=== PATIENT | female | born 1980 | race Hispanic/Latino ===

== ENCOUNTER 2021-09-25 06:25 | Emergency (ER) | payer BC ==
[~2021-09-25] VITALS: Ht 167.6 cm; Wt 77.6 kg
[2021-09-25 06:49] LABS: APPEARANCE,URINE CLEAR (CLEAR); BILIRUBIN,URINE NEGATIVE (NEGATIVE); COLOR,URINE YELLOW (YELLOW); GLUCOSE, URINE (UA) NEGATIVE (NEGATIVE); KETONES,URINE NEGATIVE (NEGATIVE); LEUKOCYTE ESTERASE ,URINE NEGATIVE (NEGATIVE); NITRATE,URINE NEGATIVE (NEGATIVE); OCCULT BLOOD,URINE SMALL (NEGATIVE); PROTEIN,URINE NEGATIVE (NEGATIVE)
[2021-09-25 06:53] LABS: HCG,QUALITATIVE URINE NEGATIVE (NEGATIVE)
[2021-09-25] MEDS ORDERED: LIDOCAINE HCL 2% VISCOUS 15 ML UDCUP PO ONE (07:00)
[2021-09-25] MEDS ORDERED: MAG/ALUM/SIMETH 30 ML UDCUP PO ONE (07:00)
[2021-09-25] MEDS ORDERED: KETOROLAC 15MG/ML VIAL (15MG/ML) IV ONE (07:00)
[2021-09-25] MEDS ORDERED: ONDANSETRON 4MG INJ IVP ONE (07:00)
[2021-09-25 07:02] LABS: BASOPHILS % (AUTO) 0.2 % (0.0-5.0); EOSINOPHILS % (AUTO) 0.7 % (0.0-8.0); HEMATOCRIT 38.4 % (36-48); LYMPHOCYTES % (AUTO) 21.8 % (21.0-51.0); MEAN CORPUSCULAR HEMOGLOBIN 26.9 pg (27.0-33.0); MEAN CORPUSCULAR HGB CONC 32.8 g/dL (32.0-36.0); MEAN CORPUSCULAR VOLUME 82.1 fL (79-99); MONOCYTES % (AUTO) 8.4 % (3.0-13.0); NEUTROPHILS % (AUTO) 68.6 % (40.0-77.0); PLATELET COUNT (AUTO) 277 K/uL (130-400); RED BLOOD CELL COUNT(AUTO) 4.68 MIL/uL (4.00-5.50); RED CELL DISTRIBUTION WIDTH 13.9 % (11.0-15.5); WHITE BLOOD COUNT (AUTO) 9.5 K/uL (4.8-10.8)
[2021-09-25 07:09] LABS: BACTERIA,URINE Rare /HPF (None Seen); MUCUS,URINE Rare LPF (None Seen); SQUAMOUS EPITHELIAL CELL,UR Few /HPF (0-2); WBC,URINE None Seen /HPF (0-1)
[2021-09-25 07:18] LABS: ALBUMIN 3.7 g/dL (3.5-5.0); CREATININE 0.7 mg/dL (0.5-1.5); POTASSIUM 3.4 mmol/L (3.5-5.1); TOTAL PROTEIN, SERUM 7.8 g/dL (6.0-8.3)
[2021-09-25] MEDS ORDERED: METOPROLOL TARTRATE 50 MG TAB PO ONE (07:30)
[2021-09-25] MEDS ORDERED: ONDA4TAB10 PO (08:49)
[2021-09-25] MEDS ORDERED: DOCU-116 PO (08:49)
[2021-09-25] MEDS ORDERED: OXYC-38 PO (08:49)
[2021-09-25 08:54] VITALS: BP 119/76
== END 2021-09-25 09:15 | disposition home or self-care (01) ==
LOC: EDH 06:25
DX: K80.70 Calculus of gallbladder and bile duct without cholecystitis without obstruction (principal); E03.9 Hypothyroidism, unspecified; I10 Essential (primary) hypertension; Z79.1 Long term (current) use of non-steroidal anti-inflammatories (NSAID)
CPT/HCPCS: 99284; 96374; 76705; 96375; 80053; 83690; 85025; 81001; 81025; 36415; J2405; J1885

== ENCOUNTER 2021-12-23 06:59 | Day surgery (SDC) | payer BC ==
[2021-12-22 15:41] LABS: BASOPHILS % (AUTO) 0.3 % (0.0-5.0); EOSINOPHILS % (AUTO) 2.9 % (0.0-8.0); HEMATOCRIT 37.5 % (36-48); LYMPHOCYTES % (AUTO) 32.6 % (21.0-51.0); MEAN CORPUSCULAR HEMOGLOBIN 25.2 pg (27.0-33.0); MEAN CORPUSCULAR HGB CONC 30.9 g/dL (32.0-36.0); MEAN CORPUSCULAR VOLUME 81.3 fL (79-99); MONOCYTES % (AUTO) 7.8 % (3.0-13.0); NEUTROPHILS % (AUTO) 56.1 % (40.0-77.0); PLATELET COUNT (AUTO) 305 K/uL (130-400); RED BLOOD CELL COUNT(AUTO) 4.61 MIL/uL (4.00-5.50); WHITE BLOOD COUNT (AUTO) 7.2 K/uL (4.8-10.8)
[2021-12-22 15:50] LABS: CREATININE 0.6 mg/dL (0.5-1.5); POTASSIUM 3.8 mmol/L (3.5-5.1)
[2021-12-23] VITALS (9 sets, daily range): BP systolic 110–123; BP diastolic 69–82
[~2021-12-23] VITALS: Ht 167.6 cm; Wt 79.4 kg
[~2021-12-23 06:59] MED LIST: BIRTH CONTROL PO; LOSA25TA41 PO; THYR180T2 PO
[2021-12-23] MEDS ORDERED: PROPOFOL 10 MG/ML 20ML VIAL IV ONE (07:39)
[2021-12-23] MEDS ORDERED: ONDANSETRON 4MG INJ ONE (07:40)
[2021-12-23] MEDS ORDERED: LIDOCAINE HCL 1% 20 ML VIAL ONE (07:41)
[2021-12-23] MEDS ORDERED: 0.9%NACL 1000ML 1,000 ML IV SCH (08:00)
[2021-12-23] MEDS ORDERED: CEFAZOLIN SODIUM 1 GM VIAL IVP ONE (08:00)
== END 2021-12-23 09:15 | disposition home or self-care (01) ==
LOC: DAH 06:59 → ENDO 06:59
PROVIDERS: ATTEND Student in an Organized Health Care Education/Training Program
DX: R10.13 Epigastric pain (principal); Z20.822 Contact with and (suspected) exposure to COVID-19; K29.50 Unspecified chronic gastritis without bleeding; I10 Essential (primary) hypertension; Z90.49 Acquired absence of other specified parts of digestive tract; Z98.890 Other specified postprocedural states
CPT/HCPCS: 87426; 80048; 84703; 85025; 36415; 43239; J7030 ×2; J2704; J2405; A4215 ×4; A4222 ×2; A4663 ×2; A4216; A4620 ×2; A4223 ×2; A4221 ×2; A4606 ×2